=== PATIENT | female | born 1995 | race Caucasian/White ===

== ENCOUNTER 2018-10-06 04:22 | Inpatient (IN) ==
[2018-10-06] MEDS: Lactated Ringers 1,000 ML PRIMARY IV ONE ×2 (05:10→12:00)
[2018-10-06] MEDS ORDERED: Lactated Ringers 1,000 ML PRIMARY IV ONE (05:30)
[2018-10-06] MEDS ORDERED: Lidocaine 1% 10 MG/ML - 20 ML VIAL SUBCUT PRN (07:22)
[2018-10-06] MEDS ORDERED: Carboprost Inj 250 MCG/ML AMP IM PRN (07:22)
[2018-10-06] MEDS ORDERED: OXYTOCIN 10 UNIT/1 ML IM PRN (07:22)
[2018-10-06] MEDS ORDERED: diphenhydrAMINE 50 MG/1 ML VIAL IVP PRN ×3 (07:22→13:37)
[2018-10-06] MEDS ORDERED: LIDOCAINE HCL 2 % 10 ML JELLY URO-JECT TOPICAL PRN ×2 (07:22→13:37)
[2018-10-06] MEDS ORDERED: Naloxone Inj 0.01 MG in Sodium Chloride 0.9% vial 1 ML IVP PRN ×2 (07:22→09:51)
[2018-10-06] MEDS ORDERED: fentaNYL Inj 100 MCG/2 ML VIAL IV PRN (07:22)
[2018-10-06] MEDS ORDERED: NALOXONE 0.4 MG/1 ML VIAL IVP PRN ×2 (07:22→09:51)
[2018-10-06] MEDS ORDERED: CALCIUM CARBONATE 500 MG (TUMS) CHEWABLE TABLET PO PRN ×2 (07:22→13:37)
[2018-10-06] MEDS ORDERED: Nalbuphine Inj 20 MG/ML Ampule IVP PRN ×3 (07:22→13:37)
[2018-10-06] MEDS ORDERED: MISOPROSTOL 200 MCG TABLET RECTAL PRN (07:22)
[2018-10-06] MEDS ORDERED: CITRIC ACID/SODIUM CITRATE 30 ML CUP PO PRN (07:22)
[2018-10-06] MEDS ORDERED: BUTORPHANOL TARTRATE 2 MG/1 ML VIAL IVP PRN ×2 (07:22→09:51)
[2018-10-06] MEDS ORDERED: METHYLERGONOVINE MALEATE 0.2 MG/1 ML VIAL IM PRN (07:22)
[2018-10-06] MEDS ORDERED: LIDOCAINE W/ SODIUM BICARB 0.5 ML SYR SUBD PRN (07:22)
[2018-10-06] MEDS ORDERED: CefOXitin Inj 2 GM in Sodium Chloride 0.9% 100 ML IV PRN (07:22)
[2018-10-06] MEDS ORDERED: Metoclopramide Inj 10 MG/2 ML VIAL IV PRN (07:22)
[2018-10-06] MEDS ORDERED: FAMOTIDINE 20 MG/2 ML VIAL IVP PRN ×2 (07:22)
[2018-10-06] MEDS ORDERED: ePHEDrine Inj 50 MG/ML AMP IVP PRN ×2 (07:22→09:51)
[2018-10-06] MEDS ORDERED: TERBUTALINE SULFATE 1 MG/1 ML SDV SUBCUT PRN (07:22)
[2018-10-06] MEDS ORDERED: ONDANSETRON 4 MG/2 ML VIAL IVP PRN ×2 (07:22→13:37)
[2018-10-06] MEDS ORDERED: Phenylephrine Inj 50 MCG in Sodium Chloride 0.9% vial 0.5 ML IVP PRN ×2 (07:22→09:51)
[2018-10-06] MEDS ORDERED: Oxytocin 20 Units + LR 20 UNIT/1,000 ML BAG IV SCH ×2 (07:30→13:37)
[2018-10-06] MEDS ORDERED: Lactated Ringers-OB Dept 1,000 ML PRIMARY IV SCH (07:30)
[2018-10-06 07:45] LABS: Hematocrit [HCT] 32.2 % (37.0-47.0); Hemoglobin [HGB] 10.3 g/dL (12.0-16.0); MEAN CORPUSCULAR HEMOGLOBIN 25.4 PG (27-31); MEAN CORPUSCULAR VOLUME 79.5 FL (81-99); MEAN PLATELET VOLUME 12.7 FL (7.4-12.2); RED BLOOD COUNT 4.05 10^6/uL (4.20-5.40)
[2018-10-06] MEDS ORDERED: LIDOCAINE HCL 1%/EPI 1:100,000 - 20 ML VIAL ONE ×3 (08:46→08:48)
[2018-10-06] MEDS ORDERED: LIDOCAINE 2%/ EPI 1:200,000 - 20 ML VIAL ONE (09:07)
[2018-10-06] MEDS ORDERED: Fent/Bupiv 2mcg/0.0625% Epid 250 ML ONE (09:13)
--- NOTE | 2018-10-06 09:42 | CRNA.PROGR ---
Anesthesia Time - Procedure/Recovery Time Start Date: 10/06/18 End Date: 10/06/18 Anesthesia : Time In: 08:40 Anesthesia : Time Out: 12:40 Anesthesia : Total Time: 240 - Total Anesthesia Time Total Anesthesia Time (minutes): 240 - Other Weight: 61.87 kg Height: 5 ft Body Mass Index (BMI): 26.6 Physical Status: P2 Anesthesia Type: Epidural
--- NOTE | 2018-10-06 09:47 | CRNA.PROCE ---
Central Neuraxis Block [facility] - - Safety Measures: Site Verified - - Type of Block: Epidural Reason for Block: Analgesia Moniters Used During Block: SPO2, NIBP Positioning: Sitting Skin Prep Used: Betadine Draped: Yes Skin Infiltration - Enter Amount Used in Comment Field: 1% Xylocaine (mL): Yes (2 ml) Spinal Needle Used: 18 Hustead 80 mm ([place] with saline. Epidural space times 2. 1st catheter removed due to persistant parasthesia that did not decrease within a few seconds. 2nd catheter had a transient parasthesia.) Local Anesthetic - Enter Amount Used in Comment Field: Other Local Anesthetic: Yes (2% lido with epi 1:200k 3.5 ml) Number of Centimeters Catheter Threaded: 3.5 Bioclusive Dressing Applied: Yes (skin prep under all adhesive) - - Additional Details: Different epidural trays with no test dose local included. Used 2% MPF lido with epi 1:200k. Dosed 3.5 ml twice. No IV. No SAB. Started infusion at 925. Settings 12 ml/hr. 6 ml demand. 10 min lockout. 90 ml max 4 hours. Loading dose of 6 ml. Pt reported mostly comfortable prior to me beginning infusion. 1005 Epidural shut off because pt felt it was a little hard to breathe. Nurse documented sensory dermatome level at nipples. Pt denies sensory changes in 5th finger of either hand. Epidural infusion was turned off for 1/2 hour and restarted at a basal rate of 8 ml per hour with other settings the same. Pt reports comfort. Membranes just ruptured. Nursing staff reports her to be 7 perhaps 8 cm in dilitation. Delivered with no difficulty. Nursing staff turned off epidural about 45 min prior to delivery due to pt feeling light headed. ? Vena cava being compressed. Now delivered, she's happy, baby is happy. Anesthesia Time - Other Weight: 61.87 kg Height: 5 ft Body Mass Index (BMI): 26.6
[2018-10-06] MEDS ORDERED: fentaNYL 2 MCG/BUPIVACAINE 0.0625%/NS 0.9% 250 ML BAG EPIDURAL ONE (09:50)
--- NOTE | 2018-10-06 12:43 | OB.DEL.SUM ---
Delivery Note Delivery Summary: This 23 yo now P2 female presented early this morning in labor at 38 4/7 weeks EGA. was uncomplicated. She progressed well through early active labor. SROM occurred at 6 cm dilation. She progressed well with epidural analgesia to complete dilation at 0 station. she pushed for about 30 min to of a viable female , 7 lbs 6 oz., Apgars 7/8, from OA position over an intact perineum. Delayed cord clamping for 45 seconds was allowed. The placenta delivered within 5 min, spontaneously, intact, with a 3 vessel cord. EBL was 250 ml. There were no complications. Mother and baby tolerated delivery well.
[2018-10-06] MEDS ORDERED: RHO(D) IMMUNE GLOBULIN 1500 UNIT(300 mcg)SYRIN IM PRN (13:37)
[2018-10-06] MEDS ORDERED: Lidocaine 1% 10 MG/ML - 20 ML VIAL INTRADERM PRN (13:37)
[2018-10-06] MEDS ORDERED: diphenhydrAMINE 25 MG CAPSULE PO PRN (13:37)
[2018-10-06] MEDS ORDERED: LANOLIN HPA 40 GM TUBE TOPICAL PRN (13:37)
[2018-10-06] MEDS ORDERED: ACETAMINOPHEN 325 MG TABLET PO PRN (13:37)
[2018-10-06] MEDS ORDERED: BENZOCAINE/MENTHOL SPRAY 56 GM BOTTLE TOPICAL PRN (13:37)
[2018-10-06] MEDS ORDERED: Ondansetron ODT Tab 4 MG TAB PO PRN (13:37)
[2018-10-06] MEDS ORDERED: GLYCERIN/WITCH HAZEL 1 BOX TOPICAL PRN (13:37)
[2018-10-06] MEDS ORDERED: DIPH,PERTUSS,TET(ADACEL) VAC/PF 0.5 ML (Tdap) IM ONE (13:37)
[2018-10-06] MEDS: IBUPROFEN 800 MG TABLET PO PRN ×2 (14:43→23:35)
[2018-10-06] MEDS: HYDROcodone-APAP 5 MG -325 MG TABLET PO PRN (19:07)
[2018-10-07] MEDS: HYDROcodone-APAP 5 MG -325 MG TABLET PO PRN (06:00)
[2018-10-07 08:20] LABS: BASOPHILS # (AUTO) 0.01 10*3/UL; BASOPHILS % (AUTO) 0.1 % (0-1); EOSINOPHILS # (AUTO) 0.09 10*3/UL; Hematocrit [HCT] 33.4 % (37.0-47.0); Hemoglobin [HGB] 10.7 g/dL (12.0-16.0); LYMPHOCYTES # (AUTO) 2.19 10*3/uL; MEAN CORPUSCULAR HEMOGLOBIN 25.7 PG (27-31); MEAN CORPUSCULAR VOLUME 80.3 FL (81-99); MEAN PLATELET VOLUME 12.4 FL (7.4-12.2); MONOCYTES # (AUTO) 0.38 10*3/UL (0.3-0.8); MONOCYTES % (AUTO) 4.4 % (5-15); NEUTROPHILS # (AUTO) 5.92 10*3/UL; NEUTROPHILS % (AUTO) 68.8 % (50-80); RED BLOOD COUNT 4.16 10^6/uL (4.20-5.40)
[2018-10-07 08:33] LABS: PLATELET MORPHOLOGY COMMENT NORMAL MORPHOLOGY (NORM); RBC MORPHOLOGY COMMENT NORMAL MORPHOLOGY (NORM); WBC MORPHOLOGY COMMENT NORMAL MORPHOLOGY (NORM)
[2018-10-07] MEDS ORDERED: DOCUSATE 100 MG CAPSULE PO SCH (09:00)
[2018-10-07] MEDS ORDERED: Prenatal Multivitamin Tab 1 TAB TAB PO SCH (09:00)
[2018-10-07] MEDS: IBUPROFEN 800 MG TABLET PO PRN (10:27)
--- NOTE | 2018-10-07 13:33 | OB.PROGRES ---
Subjective Post Day: 1 Garza Catheter: No Flatus: Yes Lochia Color: Serosa/Brown Scant < 10 ml Diet: Regular Feeding Method: Exculsively Ambulating: Yes Concerns / Additional Information: The patient states she is feeling well. No problems. The patient would like to go home. Breast-feeding. Objective - General General Appearance: POSITIVE: No Acute Distress, Cooperative - Respiratory Respiratory Exam: POSITIVE: Clear to Auscultation - Bilaterally - Abdomen Bowel Sounds: Present Other Abdominal Exam Details: Abdomen soft and nontender without guarding or rebound - Fundus/Lochia/Perineum Uterus Position: POSITIVE: At Umbilicus Assesstment / Plan Assessment / Plan: Assessment: day #1 status post spontaneous vaginal delivery. Patient is doing well. Baby is doing well. Patient is Rh- and baby is Rh+ so patient will receive RhoGAM Plan: Discharge home today. Usual instructions Ibuprofen 800 mg 1 tablet by mouth 3 times a day for 5 days with food or milk then 3 times a day as needed Colace 100 mg capsule 1 capsule by mouth daily to twice a day when necessary constipation Ferrous sulfate 325 mg 1 tablet by mouth daily #30 and no refill The patient should follow-up with her primary OB physician in 6 weeks. The patient may call for any questions. Pelvic rest for 6 weeks. Contraception will be discussed at the 6 week appointment.
--- NOTE | 2018-10-07 13:38 | DCSUMMARY ---
Hospitalization Summary Admit Date: 10/06/18 Discharge Date: 10/07/18 Primary Diagnosis:: active labor Secondary Diagnosis:: Spontaneous vaginal delivery Delivery Type: Vaginal / Postop Complications: None apparent Assessment: day #1 status post spontaneous vaginal delivery. Patient is doing well. Baby is doing well. Patient is Rh- and baby is Rh+ so patient will receive RhoGAM Plan: Discharge home today. Usual instructions Ibuprofen 800 mg 1 tablet by mouth 3 times a day for 5 days with food or milk then 3 times a day as needed Colace 100 mg capsule 1 capsule by mouth daily to twice a day when necessary constipation Ferrous sulfate 325 mg 1 tablet by mouth daily #30 and no refill The patient should follow-up with her primary OB physician in 6 weeks. The patient may call for any questions. Pelvic rest for 6 weeks. Contraception will be discussed at the 6 week appointment. Complications: None apparent Exam - Vitals Vital Signs: Vital Signs Temperature 97.5 F Temperature Source Oral Pulse Rate [Pulse Oximeter] 54 Pulse Rate [L finger] 82 Pulse Rate 54 Respiratory Rate 12 Blood Pressure [Right Arm] 111/72 Blood Pressure 113/70 Pulse Ox [L finger] 100 Pulse Ox 99 Oxygen Delivery Method [L Room Air finger] Oxygen Delivery Method Room Air Height 5 ft Weight 136 lb
[2018-10-07 13:44] VITALS: BP 105/56; RESP 14; TEMP 98.1; O2SAT 97
== END 2018-10-07 14:50 | disposition home or self-care (01) | DRG 807 ==
LOC: OBOP 04:22 → OBIP 08:03
PROVIDERS: ADMIT Obstetrics & Gynecology; ATTEND Obstetrics & Gynecology